=== PATIENT | female | born 1990 | race Caucasian/White ===

== ENCOUNTER 2021-12-16 21:37 | Emergency (ER) | payer OTHER ==
[~2021-12-16] VITALS: Ht 162.6 cm; Wt 101.4 kg
[2021-12-16] MEDS ORDERED: LITH300T2 (21:44)
[2021-12-17 04:32] LABS: BLOOD UREA NITROGEN 7 MG/DL (7-18); CALCIUM LEVEL 8.9 MG/DL (8.5-10.1); CARBON DIOXIDE LEVEL 25 MEQ/L (21-32); CHLORIDE LEVEL 110 MEQ/L (98-107); CREATININE FOR GFR 0.64 MG/DL (0.55-1.30); GLOMERULAR FILTRATION RATE > 60.0 (>60); GLUCOSE, FASTING 92 MG/DL (70-100); LITHIUM LEVEL < 0.20 MEQ/L (0.60-1.20); POTASSIUM SERUM 3.4 MEQ/L (3.5-5.1); SODIUM LEVEL 142 MEQ/L (136-145)
[2021-12-17 06:04] VITALS: BP 142/82
== END 2021-12-17 06:06 | disposition home or self-care (01) ==
LOC: M ED 21:37
DX: R53.1 Weakness (principal)

== ENCOUNTER 2022-01-21 22:30 | Emergency (ER) | payer OTHER ==
[~2022-01-21] VITALS: Ht 162.6 cm; Wt 103.2 kg
[2022-01-21 22:30] VITALS: BP 132/75
[~2022-01-21 22:30] MED LIST: LITH300T2
[2022-01-21] MEDS ORDERED: ZOLO100T PO (22:33)
[2022-01-22] MEDS ORDERED: BOOSTRIX/ADACEL VACCINE (DIPHTH/PERTUSS/ACELL/TETANUS) 0.5ML SYR IM ONE
[2022-01-22] MEDS ORDERED: DERMABOND TOPICAL SKIN ADHESIVE TOP ONE
== END 2022-01-22 00:56 | disposition home or self-care (01) ==
LOC: M ED 22:30
DX: S61.412A Laceration without foreign body of left hand, initial encounter (principal); X58.XXXA Exposure to other specified factors, initial encounter; Y99.0 Civilian activity done for income or pay; F32.9 Major depressive disorder, single episode, unspecified